=== PATIENT | female | born 2000 | race Caucasian/White ===

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

== ENCOUNTER 2020-07-10 17:02 | Observation (INO) | payer MEDICAID ==
[~2020-07-10] VITALS: Ht 149.9 cm; Wt 67.6 kg
[~2020-07-10 17:02] MED LIST: PNV1TABL76 MT
== END 2020-07-10 18:50 | disposition home or self-care (01) ==
LOC: 8 EST LDRP 17:02 → INTOOBSV 17:02
PROVIDERS: ADMIT Obstetrics & Gynecology; ATTEND Obstetrics & Gynecology
DX: O99.89 Other specified diseases and conditions complicating pregnancy, childbirth and the puerperium (principal); M54.5 Low back pain; Z3A.37 37 weeks gestation of pregnancy
CPT/HCPCS: 59025; 81002; 99281; G0378

== ENCOUNTER 2020-07-17 16:25 | Observation (INO) | payer MEDICAID ==
[~2020-07-17] VITALS: Ht 149.9 cm; Wt 69.4 kg
[2020-07-17 17:59] LABS: CLARITY URINE CLEAR (CLEAR); COLOR URINE DK YELLOW (YELLOW); KETONES URINE TRACE (NEGATIVE); LEUKOCYTE ESTERASE URINE 1+ (NEGATIVE); NITRITE URINE NEGATIVE (NEGATIVE); OCCULT BLOOD URINE NEGATIVE (NEGATIVE); PROTEIN URINE NEGATIVE (NEGATIVE); SPECIFIC GRAVITY URINE 1.026 (1.005-1.030)
[2020-07-17] MEDS ORDERED: LACTATED RINGERS 1,000 ML IV SCH (18:00)
[2020-07-17] MEDS ORDERED: CEFTRIAXONE 1,000 MG in DEXTROSE 5% WATER 50 ML IV SCH (21:00)
== END 2020-07-17 21:00 | disposition home or self-care (01) ==
LOC: 8 EST LDRP 16:25
PROVIDERS: ADMIT Obstetrics & Gynecology; ATTEND Obstetrics & Gynecology
DX: O99.89 Other specified diseases and conditions complicating pregnancy, childbirth and the puerperium (principal); M54.5 Low back pain; Z3A.38 38 weeks gestation of pregnancy
CPT/HCPCS: 59025; 81003; 96361; 96365; G0378; J0696; J7060; 96360; 96366; 99281; J7120

== ENCOUNTER 2020-07-19 09:05 | Inpatient (IN) | payer MEDICAID ==
[~2020-07-19] VITALS: Ht 149.9 cm; Wt 69.4 kg
[2020-07-19] MEDS: LACTATED RINGERS 1,000 ML IV SCH ×3 (11:16→16:25)
[2020-07-19 11:29] LABS: BASOPHILS % 0.5 % (0.0-2.0); EOSINOPHILS % 0.4 % (0.0-5.0); HEMATOCRIT. 25.8 % (36.0-48.0); HEMOGLOBIN. 7.9 g/dL (12.0-16.0); LYMPHOCYTES % 12.9 % (20.0-50.0); MEAN CORPUSCULAR HEMOGLOBIN 19.6 pg (28.0-32.0); MEAN CORPUSCULAR VOLUME 63.9 fL (81.0-99.0); MEAN PLATELET VOLUME 8.9 fl (7.4-10.4); MONOCYTES % 7.7 % (2.0-8.0); NEUTROPHILS % 78.5 % (40.0-76.0); PLATELET 275 x1000/uL (130-400); RED BLOOD CELL COUNT 4.05 mill/uL (4.2-5.4); RED CELL DISTRIBUTION WIDTH 18.2 % (11.6-14.6)
[2020-07-19 11:39] LABS: PARTIAL THROMBOPLASTIN TIME 24.1 sec (23.4-31.0); PROTHROMBIN TIME 10.2 sec (9.6-11.0)
[2020-07-19 12:31] LABS: HEPATITIS B SURFACE ANTIGEN NEGATIVE
[2020-07-19] MEDS ORDERED: CEFTRIAXONE 1,000 MG in DEXTROSE 5% WATER 50 ML IV SCH (13:00)
[2020-07-19 14:13] LABS: PLATELET ESTIMATE NORMAL
[2020-07-19] MEDS ORDERED: DEXT 5%/LR + PITOCIN 20UNITS/L 1,000 ML IV SCH (14:17)
[2020-07-19] MEDS ORDERED: CARBOPROST TROMETHAMINE 250 MCG/ML AMPUL IM PRN (14:30)
[2020-07-19] MEDS ORDERED: METHYLERGONOVINE MALEATE 0.2 MG/ML IM PRN (14:30)
[2020-07-19] MEDS ORDERED: MISOPROSTOL 100MCG TABLET VG SCH (14:30)
[2020-07-19] MEDS ORDERED: NALOXONE HCL 0.4 MG/ML 1ML VIAL IM PRN (14:30)
[2020-07-19] MEDS ORDERED: SODIUM CHLORIDE 0.9% 10ML VIAL ONE (15:09)
[2020-07-19] MEDS ORDERED: OXYTOCIN 10 UNITS/ML 1ML ONE (15:09)
[2020-07-19] MEDS ORDERED: CEFAZOLIN SODIUM 1000MG/VIAL ONE (15:09)
[2020-07-19] MEDS ORDERED: EPHEDRINE SULFATE 50MG/ML VIAL ONE (15:10)
[2020-07-19] MEDS ORDERED: ONDANSETRON HCL 4MG/2ML INJ ONE (15:10)
[2020-07-19] MEDS ORDERED: METOCLOPRAMIDE HCL 10MG/2ML VIAL ONE (15:10)
[2020-07-19] MEDS ORDERED: KETOROLAC 60MG/2ML VIAL IM ONE (15:10)
[2020-07-19] MEDS ORDERED: MORPHINE SULFATE/PF 1MG/ML 10ML AMP ONE (15:15)
[2020-07-19] MEDS ORDERED: FENTANYL CITRATE/PF 50MCG/ML 2ML VIAL ONE (15:15)
[2020-07-19 16:56] LABS: CLARITY URINE CLEAR (CLEAR); COLOR URINE YELLOW (YELLOW); KETONES URINE TRACE (NEGATIVE); LEUKOCYTE ESTERASE URINE NEGATIVE (NEGATIVE); NITRITE URINE NEGATIVE (NEGATIVE); OCCULT BLOOD URINE NEGATIVE (NEGATIVE); PH URINE 7.5 (4.5-8.0); PROTEIN URINE NEGATIVE (NEGATIVE); SPECIFIC GRAVITY URINE 1.008 (1.005-1.030)
[2020-07-19 17:11] LABS: *AMPHETAMINES SCREEN URINE NEGATIVE (NEGATIVE); *BARBITURATES SCREEN URINE NEGATIVE (NEGATIVE); *BENZODIAZEPINES SCREEN URINE NEGATIVE (NEGATIVE); *COCAINE SCREEN URINE NEGATIVE (NEGATIVE)
[2020-07-19 17:12] LABS: CANNABINOID URINE SCREEN NEGATIVE (NEGATIVE); METHADONE URINE SCREEN NEGATIVE (NEGATIVE); OPIATES URINE SCREEN NEGATIVE (NEGATIVE); PHENCYCLIDINE URINE SCREEN NEGATIVE (NEGATIVE)
[2020-07-19] MEDS ORDERED: MEPERIDINE HCL/PF 25MG/ML CPJ IV PRN (19:30)
[2020-07-19] MEDS ORDERED: DIPHENHYDRAMINE 50MG/ML VIAL IV PRN (19:30)
[2020-07-19] MEDS ORDERED: METOCLOPRAMIDE HCL 10MG/2ML VIAL IV PRN (19:30)
[2020-07-19] MEDS ORDERED: ONDANSETRON HCL 4MG/2ML INJ IV PRN ×2 (19:30→19:45)
[2020-07-19] MEDS ORDERED: KETOROLAC 30MG/ML VIAL IV PRN (19:30)
[2020-07-19] MEDS ORDERED: DEXT 5%/LACTATED RINGERS 1,000 ML IV SCH (19:33)
[2020-07-19] MEDS ORDERED: ACETAMINOPHEN WITH CODEINE 300/30MG TABLET PO PRN (19:45)
[2020-07-19] MEDS ORDERED: IBUPROFEN 400MG TABLET PO PRN (19:45)
[2020-07-19] MEDS ORDERED: RHO(D) IMMUNE GLOBULIN 300 MCG/SYR IM PRN (19:45)
[2020-07-19] MEDS ORDERED: BISACODYL 10MG SUPP PR PRN (19:45)
[2020-07-19] MEDS ORDERED: DIPHENHYDRAMINE 25MG CAPSULE PO PRN (19:45)
[2020-07-19] MEDS ORDERED: LANOLIN OINT 7GM TUBE TOP PRN (19:45)
[2020-07-19] MEDS ORDERED: HEMORRHOIDAL SUPP PR PRN (19:45)
[2020-07-19] MEDS ORDERED: DOCUSATE SODIUM 100MG CAPSULE PO SCH (21:00)
[2020-07-19 21:15] VITALS: BP 130/76
[2020-07-19] MEDS ORDERED: METHYLERGONOVINE MALEATE 0.2 MG/ML IM ONE (21:45)
[2020-07-19] MEDS ORDERED: CEFAZOLIN SODIUM 1000MG/VIAL IV SCH (22:00)
[2020-07-19] MEDS: DEXT 5%/LR + PITOCIN 20UNITS/L 1,000 ML IV SCH (23:11)
[2020-07-19] MEDS: CEFAZOLIN 1000MG PREMIX 50 ML IV SCH (23:11)
[2020-07-19 23:42] LABS: BASOPHILS % 0.3 % (0.0-2.0); EOSINOPHILS % 0.2 % (0.0-5.0); HEMATOCRIT. 27.7 % (36.0-48.0); HEMOGLOBIN. 8.5 g/dL (12.0-16.0); LYMPHOCYTES % 8.1 % (20.0-50.0); MEAN CORPUSCULAR HEMOGLOBIN 19.5 pg (28.0-32.0); MEAN CORPUSCULAR VOLUME 63.5 fL (81.0-99.0); MEAN PLATELET VOLUME 8.8 fl (7.4-10.4); MONOCYTES % 6.5 % (2.0-8.0); NEUTROPHILS % 84.9 % (40.0-76.0); PLATELET 244 x1000/uL (130-400); RED BLOOD CELL COUNT 4.36 mill/uL (4.2-5.4); RED CELL DISTRIBUTION WIDTH 18.3 % (11.6-14.6)
[2020-07-20] VITALS: BP 135/71
[2020-07-20] MEDS: METHYLERGONOVINE MALEATE 0.2MG TABLET PO SCH ×2 (00:02→04:13)
[2020-07-20] MEDS ORDERED: HYDROMORPHONE HCL/PF 2MG/ML CPJ IV PRN (02:15)
[2020-07-20 04:00] VITALS: BP 119/70
[2020-07-20] MEDS: DIPHENHYDRAMINE 50MG/ML VIAL IV PRN ×2 (05:09→10:31)
[2020-07-20] MEDS: CEFAZOLIN 1000MG PREMIX 50 ML IV SCH (06:57)
[2020-07-20] MEDS: DEXT 5%/LR + PITOCIN 20UNITS/L 1,000 ML IV SCH (06:57)
[2020-07-20] MEDS ORDERED: FERROUS SULFATE 325MG TABLET PO SCH (07:30)
[2020-07-20 08:00] VITALS: BP 116/74
[2020-07-20 09:09] LABS: BASOPHILS % 0.3 % (0.0-2.0); EOSINOPHILS % 0.2 % (0.0-5.0); HEMATOCRIT. 28.2 % (36.0-48.0); HEMOGLOBIN. 8.7 g/dL (12.0-16.0); MEAN CORPUSCULAR HEMOGLOBIN 19.7 pg (28.0-32.0); MEAN CORPUSCULAR VOLUME 63.8 fL (81.0-99.0); MEAN PLATELET VOLUME 8.6 fl (7.4-10.4); MONOCYTES % 5.8 % (2.0-8.0); NEUTROPHILS % 85.7 % (40.0-76.0); PLATELET 257 x1000/uL (130-400); RED BLOOD CELL COUNT 4.41 mill/uL (4.2-5.4); RED CELL DISTRIBUTION WIDTH 17.9 % (11.6-14.6)
[2020-07-20] MEDS: SIMETHICONE 80MG TABLET CHEW PO SCH ×2 (10:30→21:23)
[2020-07-20] MEDS: PRENATAL VIT/FE FUMARATE/FA TABLET PO SCH (10:30)
[2020-07-20] MEDS ORDERED: KETOROLAC 30MG/ML VIAL ONE (14:58)
[2020-07-20 17:00] VITALS: BP 112/76
[2020-07-20 20:10] VITALS: BP 106/65
[2020-07-20] MEDS: IBUPROFEN 800MG TABLET PO PRN (21:22)
[2020-07-21] VITALS: BP 110/64
[2020-07-21 04:25] VITALS: BP 106/69
[2020-07-21 07:30] VITALS: BP 109/68
[2020-07-21] MEDS: PRENATAL VIT/FE FUMARATE/FA TABLET PO SCH (08:25)
[2020-07-21] MEDS: IBUPROFEN 800MG TABLET PO PRN ×2 (08:25→15:19)
[2020-07-21] MEDS: SIMETHICONE 80MG TABLET CHEW PO SCH (08:25)
[2020-07-21 15:00] VITALS: BP 108/62
== END 2020-07-21 19:10 | disposition home or self-care (01) | DRG 540 ==
LOC: OBSVTOIN 09:05 → 8 EST LDRP 09:05 → 8EST 21:15
PROVIDERS: ADMIT Obstetrics & Gynecology; ATTEND Obstetrics & Gynecology
PROC: 10D00Z1 Extraction of Products of Conception, Low, Open Approach (ICD-10-PCS; principal; 2020-07-19)
DX: O34.219 Maternal care for unspecified type scar from previous cesarean delivery (principal); O69.81X0 Labor and delivery complicated by cord around neck, without compression, not applicable or unspecified; O77.0 Labor and delivery complicated by meconium in amniotic fluid; O72.1 Other immediate postpartum hemorrhage; Z37.0 Single live birth; Z3A.38 38 weeks gestation of pregnancy; Z79.899 Other long term (current) drug therapy; Z03.818 Encounter for observation for suspected exposure to other biological agents ruled out
CPT/HCPCS: 36415; 80305; 81003; 85025; 86592; 86703; 86762; 86850; 86900; 86920; 87340; 88307; 99281; J0690; J0696; J1170; J1200; J1885; J2175; J2210; J2274; J2405; J2590; J2765; J3010; J3490; J7060; J7121; Q0163; U0003-CS